=== PATIENT | male | born 1950 | race Caucasian/White ===

== ENCOUNTER → 2017-08-09 | Outpatient (CLI) | payer OTHER ==
--- NOTE | 2017-08-09 12:52 | PCVCIMAG ---
APPROVED REPORT Study performed: 08/09/2017 11:40:09 EXAM: Comprehensive 2D, Doppler, and color-flow Echocardiogram Patient Location: Echo lab Status: routine BSA: 2.26 HR: 62 bpmBP: 142/80 mmHg Rhythm: NSR Other Information Study Quality: Adequate Risk Factors: Cardiac Risk Factors: HTN Indications CAD CABG 2D Dimensions LVEF(%): 45.62 (>50%) IVSd: 11.92 (7-11mm) LVDd: 47.33 mm PWd: 11.36 (7-11mm) LVDs: 36.59 (25-40mm) Left Atrium: 40.99 (27-40mm) Aortic Root: 35.83 mm LV Single Plane 4CH: 57.22 % LV Single Plane 2CH: 54.68 %Hill's LVEF: 55.95 % Biplane EF: 56.1 % Volumes Left Atrial Volume (Systole) Single Plane 4CH: 55.42 mLSingle Plane 2CH: 66.02 mL LA ESV Index: 27.00 mL/m2 Aortic Valve AoV Peak Mohsen.: 1.43 m/s AO Peak Gr.: 8.22 mmHgLVOT Max P.79 mmHg LVOT Max V: 1.09 m/s Mitral Valve E/A Ratio: 1.3 MV Decel. Time: 259.78 ms MV E Max Mohsen.: 0.70 m/s MV A Mohsen.: 0.52 m/s IVRT: 107.27 ms Pulmonary Valve PV Peak Mohsen.: 1.18 m/sPV Peak Gr.: 5.61 mmHg Pulmonary Vein P Vein S: 0.62 m/sP Vein A: 0.57 m/s P Vein D: 0.91 m/sP Vein A Dur.: 152.2 msec P Vein S/D Ratio: 0.68 Tricuspid Valve TR Peak Mohsen.: 2.55 m/s TR Peak Gr.: 26.03 mmHg Left Ventricle The left ventricle is normal size. There is normal LV segmental wall motion. Mild concentric left ventricular hypertrophy. Left ventricular systolic function is normal. The left ventricular ejection fraction is within the normal range. LVEF is >55%. Grade I - abnormal relaxation pattern. Right Ventricle The right ventricle is normal size. The right ventricular systolic function is normal. Atria The left atrium size is normal. The right atrium size is normal. Aortic Valve The aortic valve is normal in structure. No aortic regurgitation is present. There is no aortic valvular stenosis. Mitral Valve The mitral valve is normal in structure. Mild mitral regurgitation. No evidence of mitral valve stenosis. Tricuspid Valve The tricuspid valve is normal in structure. Mild tricuspid regurgitation with PAP of 33 mmHg. Pulmonic Valve The pulmonary valve is normal in structure. There is mild pulmonic valvular regurgitation. Great Vessels The aortic root is normal in size. IVC is normal in size and collapses with >50% inspiration Pericardium There is no pericardial effusion. <Conclusion> The left ventricle is normal size. Mild concentric left ventricular hypertrophy. LVEF is >55%. Grade I - abnormal relaxation pattern. The right ventricle is normal size. The left atrium size is normal. The aortic valve is normal in structure. Mild mitral regurgitation. Mild tricuspid regurgitation with PAP of 33 mmHg. There is mild pulmonic valvular regurgitation. There is no pericardial effusion.
== END | disposition home or self-care (01) ==
LOC: PCVCIMAG 11:35
PROVIDERS: ATTEND Internal Medicine Cardiovascular Disease
DX: I25.810 Atherosclerosis of coronary artery bypass graft(s) without angina pectoris (principal); E78.00 Pure hypercholesterolemia, unspecified; I12.9 Hypertensive chronic kidney disease with stage 1 through stage 4 chronic kidney disease, or unspecified chronic kidney disease; N18.9 Chronic kidney disease, unspecified; K21.9 Gastro-esophageal reflux disease without esophagitis; G47.33 Obstructive sleep apnea (adult) (pediatric); R07.89 Other chest pain; R06.09 Other forms of dyspnea; Z87.891 Personal history of nicotine dependence; Z79.899 Other long term (current) drug therapy; Z79.82 Long term (current) use of aspirin
CPT/HCPCS: 80061; 93005; 93306; G0463

== ENCOUNTER → 2017-08-10 | Outpatient (CLI) | payer OTHER ==
[~2017-08-10] MED LIST: REGADENOSON 0.4 MG/5 ML DISP.SYRIN. IV ONE
--- NOTE | 2017-08-10 17:16 | PCVCIMAG ---
APPROVED REPORT Exam: Nuclear Stress Test Indication: Dyspnea, CAD Patient Location: Out-Patient Stress Nurse: Ella Valdes RN, Laurie Morris RN NC Tech:Mamie Radha [facility] Ht: 5 ft 11 in Wt: 230 lbs BSA: 2.24 m2 HR: 62 bpm BP: 161/82 mmHg BMI: 32.0 Rhythm: SB Medical History Medical History: HTN, Former Smoker, Age Medications: ASA, Plavix, Zetia, Bystolic, Crestor Allergies: No known drug allergies Previous Cardiac Procedures: CABG Pretest Chest Pain Characteristics: No chest pain Exercise History: Physically active Meds Held (24 hrs): Bystolic NM EXAM: Myocardial Perfusion REST/STRESS Imaging Protocol: Rest Tc-99m/Stress Tc-99m 1 day Resting Data Rest SPECT myocardial perfusion imaging was performed in supine position 45 minutes following the intravenous injection of 10.3 mCi of Tc-99m Sestamibi. Time of rest injection: 829 Date: 08/10/2017 Administration Route: IV Administration Site: Right AC Pharmacologic Stress Pharmacologic stress test was performed by injecting Regadenoson 0.4 mg IV push followed by the intravenous injection of 31.8 mCi of Tc-99m Sestamibi. Time of stress injection: 944 Date: 08/10/2017 Administration Route: IV Administration Site: Right AC Gated Stress SPECT was performed 45 minutes after stress injection. The images were gated to evaluate regional wall motion and calculate left ventricular ejection fraction. Study Quality Study: Good Study Data Post stress, the left ventricular ejection was 64%.. SSS: 2 SRS: 2 SDS: 2 TID = 1.11. Perfusion No evidence of stress induced ischemia or prior myocardial infarction. Wall Motion Normal left ventricular size and function with no regional wall motion abnormalities. Nuclear Conclusion No evidence of stress induced ischemia or prior myocardial infarction. Normal left ventricular size and function with no regional wall motion abnormalities. Post stress, the left ventricular ejection was 64%.. No prior study available for comparison. Interpreted by: Marcin Hernandez MD Electronically Approved: 08/10/2017 15:41:48 Stress Test Details Stress Test: Pharmacologic stress was paired with low level exercise. Reason for pharmacologic stress test: physical limitation. HR Resting HR: 62 bpmMax Heart Rate (APMHR): 155 bpm Max HR Achieved: 96 bpmTarget HR (85% APMHR): 131 bpm % of APMHR: 61 Recovery HR: 65 bpm BP Resting BP: 161/82 mmHg Max BP: 140/60 mmHg ECG Resting ECG: Sinus Bradycardia Stress ECG: Sinus Rhythm Recovery ECG: Sinus Rhythm Clinical Reason for Termination: Completed protocol Stress Symptoms: Dyspnea Exercise duration: 4 min 00 sec Exercise capacity: 1.6 METs Symptoms resolved during recovery. Stress ECG Conclusion Clinical: Non-ischemic ECG: Non-ischemic <Conclusion> Clinical: Non-ischemic ECG: Non-ischemic
== END | disposition home or self-care (01) ==
LOC: PCVCIMAG 08:01
PROVIDERS: ATTEND Internal Medicine Cardiovascular Disease
DX: I25.10 Atherosclerotic heart disease of native coronary artery without angina pectoris (principal); R06.00 Dyspnea, unspecified; Z87.891 Personal history of nicotine dependence
CPT/HCPCS: 78452; 93017; A9500; J2785

== ENCOUNTER → 2019-07-17 | Outpatient (CLI) | payer OTHER ==
--- NOTE | 2019-07-17 16:27 | PCVCIMAG ---
APPROVED REPORT Study performed: 07/17/2019 07:53:58 EXAM: Comprehensive 2D, Doppler, and color-flow Echocardiogram Patient Location: Echo lab Status: routine BSA: 2.24 HR: 68 bpmBP: 136/82 mmHg Rhythm: NSR Other Information Study Quality: Adequate Risk Factors: Cardiac Risk Factors: HTN Indications Dyspnea CAD HX CABG and coronary stents 2D Dimensions IVSd: 14.13 (7-11mm) LVDd: 43.72 mm PWd: 14.07 (7-11mm)Ascending Ao: 36.93 (22-36mm) LVDs: 35.11 (25-40mm) Left Atrium: 41.15 (27-40mm) Aortic Root: 35.72 mm LV Single Plane 4CH: 50.04 % LV Single Plane 2CH: 51.74 % Biplane EF: 52.5 % Volumes Left Atrial Volume (Systole) Single Plane 4CH: 55.34 mLSingle Plane 2CH: 74.28 mL LA ESV Index: 29.00 mL/m2 Aortic Valve AoV Peak Mohsen.: 1.45 m/s AO Peak Gr.: 8.43 mmHgLVOT Max P.64 mmHg LVOT Max V: 1.08 m/s Mitral Valve E/A Ratio: 0.8 MV Decel. Time: 229.77 ms MV E Max Mohsen.: 0.62 m/s MV A Mohsen.: 0.74 m/s IVRT: 107.27 ms Pulmonary Valve PV Peak Mohsen.: 1.06 m/sPV Peak Gr.: 4.47 mmHg Pulmonary Vein P Vein S: 0.28 m/sP Vein A: 0.36 m/s P Vein D: 0.58 m/sP Vein A Dur.: 128.0 msec P Vein S/D Ratio: 0.48 Tricuspid Valve TR Peak Mohsen.: 2.15 m/s TR Peak Gr.: 18.54 mmHg TV Vmax: 0.52 m/s Left Ventricle The left ventricle is normal size. There is normal LV segmental wall motion. Mild concentric left ventricular hypertrophy. Left ventricular systolic function is normal. The left ventricular ejection fraction is within the normal range. LVEF is 55%. Grade I - abnormal relaxation pattern. Right Ventricle The right ventricle is normal size. The right ventricular systolic function is normal. Atria The left atrium size is normal. The right atrium size is normal. Aortic Valve The aortic valve is normal in structure. Trace aortic regurgitation. There is no aortic valvular stenosis. Mitral Valve The mitral valve is normal in structure. Mild mitral regurgitation. No evidence of mitral valve stenosis. Tricuspid Valve The tricuspid valve is normal in structure. Trace tricuspid regurgitation with PAP of 26 mmHg. Pulmonic Valve The pulmonary valve is normal in structure. Trace pulmonic regurgitation. Great Vessels The aortic root is normal in size. IVC is normal in size and collapses >50% with inspiration. Pericardium There is no pericardial effusion. There is no pleural effusion. <Conclusion> The left ventricle is normal size. Mild concentric left ventricular hypertrophy. LVEF is 55%. Grade I - abnormal relaxation pattern. The right ventricle is normal size. The left atrium size is normal. The aortic valve is normal in structure. Trace aortic regurgitation. Mild mitral regurgitation. Trace tricuspid regurgitation with PAP of 26 mmHg. The aortic root is normal in size. There is no pericardial effusion.
--- NOTE | 2019-07-17 16:33 | PCVCIMAG ---
APPROVED REPORT Imaging Protocol: Rest Tc-99m/Stress Tc-99m 1 day Study performed: 07/17/2019 09:11:07 Indication: Dyspnea, Chest heaviness, CAD Patient Location: Out-Patient Stress Nurse: Ella Valdes RN NH Tech:Mamie Garcia [facility] Ht: 5 ft 11 in Wt: 230 lbs BSA: 2.24 m2 HR: 66 bpm BP: 140/78 mmHg BMI: 32.0 Rhythm: Sinus Rhythm Medical History Medical History: Hyperlipidemia, HTN, CKD, CAD Medications: Zetia, ASA, Plavix, Bystolic, Cestor Allergies: Colchicine Cardiac Risk Factors: Age Previous Cardiac Procedures: 2000 CATH Pretest Chest Pain Characteristics: No chest pain Meds Held (24 hrs): Bystolic Resting Data Rest SPECT myocardial perfusion imaging was performed in supine position 45 minutes following the intravenous injection of 10.5 mCi of Tc-99m Sestamibi. Time of rest injection: 829 Date: 07/17/2019 Administration Route: IV Administration Site: Right Arm Pharmacologic Stress Pharmacologic stress test was performed by injecting Regadenoson 0.4 mg IV push over 10-15 seconds immediately followed by the intravenous injection of 35.2 mCi of Tc-99m Sestamibi. Time of stress injection: 944 Date: 07/17/2019 Administration Route: IV Administration Site: Right Arm Gated Stress SPECT was performed 45 minutes after stress injection. The images were gated to evaluate regional wall motion and calculate left ventricular ejection fraction. Stress Test Details Stress Test: Pharmacologic stress testing performed using 0.4 mg of regadenoson per 5 mL given IV over 10 seconds. Reason for pharmacologic stress test: physical limitation, hip arthritis. HRMax Heart Rate (APMHR): 153 bpm Resting HR: 66 bpmTarget HR (85% APMHR): 130 bpm Max HR Achieved: 95 bpm % of APMHR: 62 Recovery HR: 74 bpm BP Resting BP: 140/78 mmHg Max BP: 120/78 mmHg Recovery BP: 148/73 mmHg ECG Resting ECG: Sinus Rhythm Stress ECG: Sinus Rhythm Arrhythmia: None Recovery ECG: Sinus Rhythm Clinical Reason for Termination: Completed protocol Stress Symptoms: Dyspnea, Lightheaded Exercise duration: 4 min 00 sec Exercise capacity: 1.6 METs Symptoms resolved with caffeine. Stress ECG Conclusion ECG: Non-ischemic Study Quality Study: Good Study Data Post stress, the left ventricular ejection was 64%.. SSS: 6 SRS: 6 SDS: 2 TID = 0.96. Perfusion No evidence of stress induced ischemia or prior myocardial infarction. Wall Motion Normal left ventricular size and function with no regional wall motion abnormalities. Nuclear Conclusion No evidence of stress induced ischemia or prior myocardial infarction. Normal left ventricular size and function with no regional wall motion abnormalities. Post stress, the left ventricular ejection was 64%. No change since prior study dated July 2017. Interpreted by: Marcin Hernandez MD Electronically Approved: 07/17/2019 12:15:02 <Conclusion> ECG: Non-ischemic
== END | disposition home or self-care (01) ==
LOC: PCVCIMAG 08:46
PROVIDERS: ATTEND Internal Medicine Cardiovascular Disease
DX: I25.810 Atherosclerosis of coronary artery bypass graft(s) without angina pectoris (principal); R06.00 Dyspnea, unspecified; I34.0 Nonrheumatic mitral (valve) insufficiency; I12.9 Hypertensive chronic kidney disease with stage 1 through stage 4 chronic kidney disease, or unspecified chronic kidney disease; N18.9 Chronic kidney disease, unspecified; K21.9 Gastro-esophageal reflux disease without esophagitis; G47.30 Sleep apnea, unspecified; Z95.1 Presence of aortocoronary bypass graft; Z87.891 Personal history of nicotine dependence
CPT/HCPCS: 78452; 93017; 93306; A9500; J2785